=== PATIENT | male | born 1965 | race Two or more races ===

== ENCOUNTER 2024-06-11 09:04 | Emergency (ER) | payer OTHER, SELFPAY ==
[2024-06-11 09:05] VITALS: BMI 34.0
[2024-06-11 09:17] VITALS: BP 161/83; PULSE 62; RESP 18; TEMP 36.4; O2SAT 97
--- NOTE | 2024-06-11 09:20 | XR_ITS ---
Examination: Knee, left , 3 views Technique: Knee AP, lateral, oblique 3 views Date and time of exam: June 11, 2024 at 0947 hrs. Indications: Injury to the knee one day ago, knee pain Findings: No acute fracture No dislocation Mild to moderate tricompartment joint narrowing Impression: No acute fracture
--- NOTE | 2024-06-11 09:21 | EDNOTE_ITS ---
<Statement entered by Elana Rodriguez MD - 06/11/24 15:35> As co-signing physician, I was present and available for consult prn. I concur with the plan and care as documented by the midlevel provider. Lower Extremity Injury RME/HPI General Chief Complaint: Extremity Injury, Lower Stated Complaint: MY L KNEE POPPED LAST NIGHT, L KNEE SWELLING Time Seen by Provider: 06/11/24 09:06 Arrival date/time: 06/11/24 09:04 58-year-old male presents to the emergency department complaints of left knee pain patient reports pain worse with movement patient reports he was at work yesterday and was stepping out of the vehicle and developed pain in the left knee Limitations: no limitations Related Data Home Medications ?Medication ?Instructions ?Recorded ?Confirmed ibuprofen 800 mg tablet 800 mg PO TID PRN Pain 10/28/18 08/02/20 ascorbic acid (vitamin C) 500 mg 500 mg PO QDAY 08/02/20 08/02/20 tablet (Vitamin C) cyanocobalamin (vitamin B-12) 100 100 mcg PO QDAY 08/02/20 08/02/20 mcg tablet (Vitamin B-12) garlic 2,000 mg capsule 2,000 mg PO DAILY 08/02/20 08/02/20 ibuprofen 800 mg tablet 800 mg PO Q6H PRN Pain 08/02/20 08/02/20 [id number] tablet 1 tab PO QDAY 08/02/20 08/02/20 tamsulosin 0.4 mg capsule 0.4 mg PO QDAY 08/02/20 08/02/20 testosterone 100 mg implant pellet 100 mg subcut DAILY 08/02/20 08/02/20 vitamin E 400 unit tablet 450 mg PO QDAY 08/02/20 08/02/20 Previous Rx's ?Medication ?Instructions ?Recorded ibuprofen 800 mg tablet 800 mg PO TID PRN pain #30 tabs 11/26/20 ibuprofen 800 mg tablet 800 mg PO TID PRN pain #30 tabs 06/11/24 Allergies Allergy/AdvReac Type Severity Reaction Status Date / Time bee venom protein (honey bee) Allergy Severe Swelling Verified 06/11/24 09:07 of Lip/Tongue/Throat Review of Systems Review of Systems Systems Reviewed: All systems reviewed, normal except as documented Constitutional Constitutional: Reports system reviewed and no additional complaints, except as documented, Denies fever(s) and Denies headache(s) Eyes Eyes: Reports system reviewed and no additional complaints, except as documented and Denies blurry vision ENT Ears, Nose, Mouth, and Throat: Reports system reviewed and no additional complaints, except as documented, Denies headache(s), Denies nasal congestion and Denies nasal discharge Cardiovascular Cardiovascular: Reports system reviewed and no additional complaints, except as documented, Denies chest pain and Denies dyspnea Respiratory Respiratory: Reports system reviewed and no additional complaints, except as documented, Denies chest congestion, Denies cough and Denies dyspnea Gastrointestinal Gastrointestinal: Reports system reviewed and no additional complaints, except as documented and Denies abdominal pain Musculoskeletal Musculoskeletal: Reports system reviewed and no additional complaints, except as documented, Reports arthralgias, Reports stiffness and Denies tingling Integumentary/Breasts Skin/Breast: Reports system reviewed and no additional complaints, except as documented and Denies rash Neurologic Neurologic: Reports system reviewed and no additional complaints, except as documented, Reports as per HPI, Denies headache(s) and Denies tingling Past Medical History Past Medical History NEUROLOGIC: Negative Neurological Disorders or Seizures CARDIAC: Negative Cardiac Disorders or Congestive Heart Failure RESPIRATORY: Negative Chronic Obstructive Pulmonary Disease (COPD), Asthma, Pneumonia, Tuberculosis or Sleep Apnea GASTROINTESTINAL: Negative Gastrointestinal Disorders or Hepatitis GENITOURINARY: Positive Genitourinary Disorders and Benign Prostatic Hyperplasia (TAKES MED); Negative Renal Disease MUSCULOSKELETAL: Positive Musculoskeletal Disorders and Arthritis ENDOCRINE: Negative Endocrine Disorders, Diabetes Mellitus Type 1 or Diabetes Mellitus Type 2 HEMATOLOGIC: Negative Blood Disorders or Sickle Cell Disease OTHER HISTORY: Positive Chicken Pox and Measles; Negative Hospitalization, Autoimmune Disease, Shingles, Falls, Blood Transfusions, Blood Transfusion Reaction, Anesthesia Reactions, Chemotherapy, Radiation Therapy, MRSA, Mumps or Cancer Family History FAMILY HISTORY: Positive Family Psychiatric Problems (FATHER (DEPRESSION,ANXIETY)), Family Cardiac Disorders (FATHER (CVA)), Family Gastrointestinal Problems (FATHER (ULCER)), Family Cancer (MOTHER (LYMPH NODES)) and Family Surgery (MOTHER,FATHER); Negative Family Respiratory Disorders or Family Anesthesia Reaction Social History SMOKING STATUS: Never smoker SUBSTANCE USE: marijuana ED Exam General Limitations: Present no limitations General appearance: Present alert and in no apparent distress Head Head exam: Present atraumatic Eye Eye exam: Present normal appearance, PERRL and EOMI ENT ENT exam: Present normal exam, normal oropharynx and mucous membranes moist Neck Neck exam: Present normal inspection, full ROM and trachea midline Chest Chest inspection: Present normal inspection and symmetric chest wall rise Respiratory Respiratory exam: Present normal lung sounds bilaterally Cardiovascular Cardiovascular exam: Present regular rate, normal rhythm and normal heart sounds Abdominal Exam Abdominal exam: Present soft and normal bowel sounds Extremities Exam Extremities exam: Present full ROM, tenderness (Mild swelling pain left knee) and joint swelling Back Exam Back exam: Present normal inspection, full ROM and tenderness Neurological Exam Neurological exam: Present alert, oriented X3 and CN II-XII intact Psychiatric Psychiatric exam: Present normal affect and normal mood Skin Skin exam: Present warm, dry, intact and normal color Course Quality Measures none Orders Category Date Time Status XR knee LT 3V Stat Exams 06/11/24 09:20 Completed Ibuprofen Tab [Motrin Tab] Med 06/11/24 09:20 Discontinued 800 mg PO X1 ONE Vital Signs Vital signs: Vital Signs Temperature 97.6 F 06/11/24 09:17 Pulse Rate 62 06/11/24 09:17 Respiratory Rate 18 06/11/24 09:17 Blood Pressure 161/83 H 06/11/24 09:17 Pulse Oximetry (%) 97 06/11/24 09:17 Oxygen Delivery Method Room Air 06/11/24 09:17 O2 saturation 97% room air within normal limits Extremity Injury, Lower MDM Narrative MDM Narrative:: 58-year-old male presents to the emergency department complaints of left knee pain patient reports pain worse with movement patient reports he was at work yesterday and was stepping out of the vehicle and developed pain in the left knee X-ray of left knee obtained no acute fracture dislocation noted Patient does have small knee effusion Patient given ibuprofen for pain discharged home with ibuprofen Explained to patient needs to follow-up with Workmen's Compensation for further evaluation and possible MRI For emergent concerns patient struck to return immediately Patient data External records reviewed:: [facility] previous records Clinical information provided by:: patient Social determinants that could affect healthcare access:: none Patient has the following chronic illnesses:: See history How is presenting disease/condition affected by chronic disease/condition?: uneffected by Evaluation data The following diagnostics were reviewed and interpreted by me:: radiology exam(s) Lab and/or radiology exams considered but not ordered:: Radiology obtain Interpretation Summary: Reviewed by me Medications / Prescriptions Medications or Prescriptions considered but not ordered:: Given Medication administrations:: Medication Administration History Discontinued Medications Ibuprofen (Ibuprofen Tab 400 Mg Tablet) 800 mg PO X1 ONE Stop: 06/11/24 09:21 Last Admin: 06/11/24 09:28 Dose: 800 mg Documented By: GM Given Consultations Consultation(s) initiated? (list below): No Diagnosis Extremity Injury, Lower Differential Diagnosis: acute internal derangement of knee and other (Knee sprain) Most likely diagnosis given after review of the tests above:: Knee sprain Admission Indicated Admission indicated?: not indicated Admission Request Was there a request for admission?: No Disposition Plan Disposition Plan: Discharge Discharge Attestation Discharge Attestation: The patient and all family members were given an opportunity to ask questions and understood the discharge instructions. Discharge instructions specifically effects, indications for sooner follow up or return to the emergency department, and the expected course of current diagnosis. Patient condition: Stable Discharge Plan Plan Patient Disposition: HOME (Self Care) Disposition Comment: Stable Prescriptions/Referrals Prescriptions/Med Rec: New ibuprofen 800 mg tablet 800 mg PO TID PRN (Reason: pain) Qty: 30 0RF No Action ibuprofen 800 mg Tablet 800 mg PO TID PRN (Reason: Pain) cyanocobalamin (vitamin B-12) [Vitamin B-12] 100 mcg Tablet 100 mcg PO QDAY ibuprofen 800 mg Tablet 800 mg PO Q6H PRN (Reason: Pain) ascorbic acid (vitamin C) [Vitamin C] 500 mg Tablet 500 mg PO QDAY tamsulosin 0.4 mg Capsule 0.4 mg PO QDAY vitamin E 400 unit Tablet 450 mg PO QDAY Centrum Silver Tablet 1 tab PO QDAY garlic 2,000 mg Capsule 2,000 mg PO DAILY testosterone 100 mg Pellet 100 mg SUBCUT DAILY ibuprofen 800 mg tablet 800 mg PO TID PRN (Reason: pain) Qty: 30 0RF Referrals: Criss Ureña NP [Primary Care Provider] - In 1 week Problem List Clinical Impression: Left knee sprain, Work related injury Patient/Caregiver Discharge Instructions Education Materials: ED Knee Sprain Additional Instructions: Please follow up with your primary care doctor in the next 24-48hrs for any worsening symptoms return here immediately Print Language: Belarusian Stand Alone Forms: [employer] Award Info., Patient Portal Info Letter PA/KIRSTEN Supervising Physician PA/KIRSTEN Supervising Physician: Dr. RODRIGUEZ
[2024-06-11] MEDS: IBUPROFEN TAB 400 MG TABLET 800 MG PO (09:28)
== END 2024-06-11 11:27 | disposition home or self-care (01) ==
PROVIDERS: Emergency Provider Emergency Medicine; PCP Nurse Practitioner Family
DX: S83.92XA Sprain of unspecified site of left knee, initial encounter (principal); X58.XXXA Exposure to other specified factors, initial encounter; Y99.0 Civilian activity done for income or pay
CPT/HCPCS: 73562; 99283; A9270

== ENCOUNTER → 2024-06-29 | Outpatient (CLI) | payer MEDICARE, MEDICAID, SELFPAY ==
[2024-06-29 10:11] LABS: Basophils # (Auto) 0.1 Thou/mm3 (0.0-0.2); Basophils % (Auto) 1 % (0-2.5); Eosinophils # (Auto) 0.5 Thou/mm3 (0.0-0.5); Eosinophils % (Auto) 6 % (0-10); Hematocrit 39.7 % (41.0-53.0); Hemoglobin 13.5 g/dL (13.5-16.0); Immature Granulocytes % (Auto) 0 % (0-0); Immature Granulocytes Auto 0.02 Thou/mm3 (0.00-0.00); Lymphocytes # (Auto) 1.7 Thou/mm3 (1.0-4.8); Lymphocytes % (Auto) 22 % (10-50); Mean Corpuscular Hemoglobin 27.9 pg (25.0-35.0); Mean Corpuscular Volume 82 fL (80-100); Monocytes # (Auto) 0.4 Thou/mm3 (0.0-0.8); Monocytes % (Auto) 6 % (0-12); Neutrophils % (Auto) 66 % (37-80); Nucleated Red Blood Cell % 0 /100 WBC (0); Platelet Count 257 Thou/mm3 (140-440); RDW Standard Deviation 38.3 fL (35.1-43.9); Red Blood Count 4.84 Miln/mm3 (4.50-5.90); White Blood Count 7.7 Thou/mm3 (3.8-10.6)
[2024-06-29 10:30] LABS: Glucose Estimated Average 111 mg/dL (80-131); Hemoglobin A1C 5.5 % Hgb (4.8-6.0)
[2024-06-29 10:35] LABS: Alanine Aminotransferase 17 U/L (10-49); Albumin, Serum 4.2 gm/dL (3.5-5.0); Albumin/Globulin Ratio 1.8 (1.2-2.2); Alkaline Phosphatase 122 U/L (46-116); Anion Gap 8 (7-16); Aspartate Amino Transferase 17 U/L (0-34); BUN/Creatinine Ratio 17 Ratio (12-20); Blood Urea Nitrogen 17 mg/dL (9-23); Calcium 8.8 mg/dL (8.3-10.6); Calcium (Corrected) 8.8 mg/dL (8.5-10.1); Carbon Dioxide 26.4 mMol/L (20.0-31.0); Cardiac Risk Estimate 4.8 RATIO (4.0-6.7); Chloride 108 mMol/L (98-107); Cholesterol 211 mg/dL (132-200); Globulin 2.4 gm/dL (2.3-3.5); Glucose 94 mg/dL (74-106); HDL Cholesterol 44 mg/dL (40-60); LDL Cholesterol,Calculated 138 mg/dL (0-130); Osmolality,Calculated 284 (275-295); Potassium 4.6 mMol/L (3.4-5.1); Sodium 142 mMol/L (136-145); Total Protein 6.6 gm/dL (5.7-8.2); Triglycerides 146 mg/dL (30-150); eGFR > 60 See Note
[2024-06-29 14:54] LABS: Prostate Specific Antigen 0.71 ng/mL (0-4.00)
== END | disposition home or self-care (01) ==
LOC: COPL 08:55
PROVIDERS: PCP Nurse Practitioner Family; Referring Provider Nurse Practitioner Family; Visit Provider Nurse Practitioner Family
DX: Z00.00 Encounter for general adult medical examination without abnormal findings (principal); E78.2 Mixed hyperlipidemia; Z12.5 Encounter for screening for malignant neoplasm of prostate; Z79.899 Other long term (current) drug therapy
CPT/HCPCS: 36415; 80053; 80061; 83036; 84153; 85025